=== PATIENT | male | born 1985 | race Caucasian/White ===

== ENCOUNTER 2020-11-19 15:19 | Outpatient (REF) | payer BC, SELFPAY ==
[2020-11-19 19:09] LABS: Amphetamine Screen Urine Not Detected (Not Detect); Barbiturates, Urine Not Detected (Not Detect); Benzodiazepines Screen Urine Not Detected (Not Detect); Cannabinoid Screen Urine POSITIVE (Not Detect); Cocaine Screen Urine POSITIVE (Not Detect); Fentanyl, urine Not Detected (Not Detect); Opiate Screen Urine Not Detected (Not Detect); Phencyclidine Screen Urine Not Detected (Not Detect)
== END 2020-11-19 15:20 | disposition home or self-care (01) ==
LOC: HO.MANLNP 15:19
PROVIDERS: PCP Physician Assistant; Visit Provider Physician Assistant
DX: R44.1 Visual hallucinations (principal)
CPT/HCPCS: 80307

== ENCOUNTER 2023-09-16 14:28 | Outpatient (REF) | payer SELFPAY ==
--- NOTE | ~2023-09-16 | XR_ITS ---
EXAMINATION: XR LUMBOSACRAL SPINE CLINICAL INFORMATION: Low back pain, history of injury, pain progression with legs become numb COMPARISON: None available. TECHNIQUE: Three views of the lumbosacral spine. FINDINGS: Slight leftward curvature of the lumbar spine. Facet arthritis in the lower lumbar spine. Multilevel lumbar spondylosis. Frdkwevs-af-bfdrig loss of disc space height with degenerative changes at L5-S1. XR/XR lumbar spine 2-3V IMPRESSION: Gfzruxah-sk-oxhdig degenerative disc disease at L5-S1. Electronically signed by: Tigist Laura MD 10/11/2023 01:57 PM EDT
[2023-09-16 14:58] LABS: MANUAL DIFF FLAG NO
[2023-09-16 15:44] LABS: Basophils Percent Auto 0.3 % (0-2); Eosinophils Absolute Auto 0.2 X10*3/uL (0.0-0.4); Eosinophils Percent Auto 3.3 % (0-4); Hematocrit 48.4 % (42.0-52.0); Hemoglobin 16.5 g/dl (14.0-18.0); Imm Gran Abs Auto 0.02 X10*3/uL (0.00-0.03); Imm Gran Pct Auto 0.3 % (0.0-0.4); Lymphocytes Absolute Auto 2.2 X10*3/uL (1.2-4.9); Mean Corpuscular HGB Conc 34.1 g/dl (31.0-36.0); Mean Corpuscular Hemoglobin 29.3 pg (27.0-33.0); Mean Platelet Volume 9.6 fL (9.4-12.4); Monocytes Absolute Auto 0.4 X10*3/uL (0.1-1.2); Monocytes Percent Auto 6.8 % (2-11); Neutrophils Absolute Auto 3.2 x10*3/uL (2.0-8.3); Neutrophils Percent Auto 52.3 % (45-73); Platelet Count 219 X10*3/uL (160-400); Red Blood Count 5.63 X10*6/uL (4.60-5.80); Red Cell Distribution Width 12.6 % (11.0-16.0)
[2023-09-16 15:57] LABS: Estimated Average Glucose 194 mg/dL; Hemoglobin A1c % 8.4 % (<6.0)
[2023-09-16 16:43] LABS: Alanine Aminotransferase 34 U/L (0-40); Albumin Level 4.3 g/dL (3.5-5.0); Alkaline Phosphatase 98 U/L (39-117); Anion Gap 14 (12-20); Aspartate Amino Transferase 25 U/L (5-37); Bilirubin Total 0.4 mg/dL (0.0-1.0); Blood Urea Nitrogen 13 mg/dL (9-16); Calcium 9.9 mg/dL (8.4-10.2); Carbon Dioxide 28 mmol/L (22-29); Chloride 101 mmol/L (96-108); Cholesterol 173 mg/dL (<200); Estimated Glomerular Filt Rate > 60; Glucose Random 216 mg/dL (60-115); HDL Cholesterol 55 mg/dL (>40); LDL Cholesterol Calculated 100 mg/dL (<100); Potassium 4.4 mmol/L (3.3-5.1); Sodium 139 mmol/L (135-145); Total Protein 7.3 g/dL (6.5-8.0); Triglycerides 93 mg/dL (<150)
== END 2023-09-16 14:29 | disposition home or self-care (01) ==
LOC: HO.LAB 14:28
PROVIDERS: PCP Physician Assistant; Visit Provider Physician Assistant
DX: M51.17 Intervertebral disc disorders with radiculopathy, lumbosacral region (principal); E11.9 Type 2 diabetes mellitus without complications
CPT/HCPCS: 36415; 72100; 80053; 80061; 83036; 85025

== ENCOUNTER 2024-04-13 10:54 | Outpatient (REF) | payer BC, SELFPAY ==
[2024-04-13 11:27] LABS: MANUAL DIFF FLAG NO
[2024-04-13 11:55] LABS: Basophils Percent Auto 0.5 % (0-2); Eosinophils Absolute Auto 0.1 X10*3/uL (0.0-0.4); Eosinophils Percent Auto 1.9 % (0-4); Hematocrit 48.2 % (42.0-52.0); Imm Gran Abs Auto 0.02 X10*3/uL (0.00-0.03); Imm Gran Pct Auto 0.3 % (0.0-0.4); Lymphocytes Absolute Auto 1.8 X10*3/uL (1.2-4.9); Lymphocytes Percent Auto 28.9 % (20-40); Mean Corpuscular HGB Conc 35.3 g/dl (31.0-36.0); Mean Corpuscular Hemoglobin 28.9 pg (27.0-33.0); Mean Corpuscular Volume 81.8 fL (80.0-98.0); Mean Platelet Volume 9.3 fL (9.4-12.4); Monocytes Absolute Auto 0.5 X10*3/uL (0.1-1.2); Monocytes Percent Auto 7.7 % (2-11); Neutrophils Absolute Auto 3.8 x10*3/uL (2.0-8.3); Neutrophils Percent Auto 60.7 % (45-73); Platelet Count 259 X10*3/uL (160-400); Red Blood Count 5.89 X10*6/uL (4.60-5.80); Red Cell Distribution Width 12.1 % (11.0-16.0); White Blood Count 6.3 X10*3/uL (4.8-10.8)
[2024-04-13 12:11] LABS: Estimated Average Glucose 278 mg/dL; Hemoglobin A1C 423.4082 umol/L; Hemoglobin A1c % 11.3 % (<6.0); Total Hemoglobin (HGBA1C) 4252.9367 umol/L
--- OUTSIDE RECORDS SUMMARY | 2024-04-13 12:35 | XMS_ITS | Encounter Summary ---
Author Organization [facility] Address [address] [place] [id number] Phone Care Team Providers Care Head Neck Surgeon Name Role Phone Kalpesh Hector Primary Care Provider [phone] Encounter Details Date Type Department Care Team (Late st Contact Info) Description 09/30/2016 Conversion Encounter [facility] [address] [place] [address] Social History Tobacco Use Types Packs/Day Years Used Date Smoking Tobacco: Never Assessed Sex and Gender Information Value Date Recorded Sex Assigned at Not on file Legal Sex Male 4:20 PM EDT Gender Identity Not on file Sexual Orientation Not on file documented as of this encounter Plan of Treatment Not on file documented as of this encounter Visit Diagnoses Not on filedocumented in this encounter Care Teams Head Neck Surgeon Relationship Specialty Start Date End Date Kalpesh Hector [address] [place] [address] PCP - General 09/24/16 documented as of this encounter
--- OUTSIDE RECORDS SUMMARY | 2024-04-13 12:35 | XMS_ITS | Clinical Summary ---
Author Organization [facility] Address [address] [place] [address] Phone Care Team Providers Care Die Sinker Apprentice Name Role Phone Krunal Kalpesh Efrain Primary Care Provider [phone] Immunizations Immunization Administration Dates Next Due DTP 10/14/1996, 1,08/20/1985,06/07,03/20/1985 Hep B, ped/adol 02/18/2000,03/21/1998,10/04/1997 Hib (HbOC) 12/14/1997 IPV 07/14/1990, 7,08/20/1985,06/07 MMR 06/14/1996,09/27/1986 Meningococcal Conj (Menactra) MCV4P 06/22/2005 Td (adult) (MBL), 2 Lf tetan us toxoid, PF, adsorbed 06/22/2005,02/22/2002,06/14/1996 Social History Tobacco Use Types Packs/Day Years Used Date Smoking Tobacco: Never Assessed Sex and Gender Information Value Date Recorded Sex Assigned at Not on file Legal Sex Male 4:20 PM EDT Gender Identity Not on file Sexual Orientation Not on file Plan of Treatment Health Maintenance Due Date Last Done Comments Varicella Vaccines (1 of 2 - 13+ 2-dose series) 1997 DTaP,Tdap,and Td Vaccines (8 - Tdap) 06/23/2015 06/22/2005, 02/22/2002, 10/14/1996, Additional history exists Influenza Vaccines (#1) 2023 COVID-19 Vaccine ( - season) 2023 IPV Vaccines Completed 07/14/1990, 09/14, 08/20/1985, Additional history exists MMR Vaccines Completed 06/14/1996, 09/27/1986 HIB Vaccines Aged Out 12/14/1997 No longer eligi ble based on patient's age to complete this topic Hepatitis B Vaccines Completed 02/18/2000, 03/21/1998, 10/04/1997 Meningococcal Vaccine Aged Out 06/22/2005 No rodriguez derek eligible based on patient's age to complete this topic HPV Vaccines Aged Out No longer eligi ble based on patient's age to complete this topic Hepatitis A Vaccines Aged Out No long er eligible based on patient's age to complete this topic Men B Vaccine Aged Out No longer elig ible based on patient's age to complete this topic Pneumococcal Vaccine Aged Out No long er eligible based on patient's age to complete this topic Care Teams Die Sinker Apprentice Relationship Specialty Start Date End Date Kalpesh Hector [address] [place] [id number] PCP - General 09/24/16
--- OUTSIDE RECORDS SUMMARY | 2024-04-13 12:35 | XMS_ITS | Data Portability ---
Author Organization [facility] Service Address [address] [place] [address] Assessment Encounter Date Assessment Date Assessment LastModified by Organization Details LastModified Time 02/27/2020 02/27/2020 16649 MDM MODERATE MUST MEET 2 OUT OF 3 ELEMENTS: PROBLEMS, DATA OR RISK ELEMENT 1: PROBLEMS ADDRESSED 1 OR MORE CHRONIC ILLNESS WITH EXACERBATION OR OR OR 1 ACUTE ILLNESS W/SYMPTOMS OR ELEMENT 2: DATA MUST MEET 1 OF 3 CATEGORIES CATEGORY 1: REVIEW OF PRIOR EXTERNAL NOTES, REVIEW OF RESULTS, ORDERING OF EACH TEST, ASSESSMENT REQUIRING INDEPENDENT HISTORIAN OR CATEGORY 2: OR CATEGORY 3: ELEMENT 3: RISK RISK OF COMPLICATIONS AND/OR MORBIDITY OR MORTALITY OF PATIENT MANAGEMENT if patient does not get diabetes under control risk include neuropathy, diabetic retinopathy, NC, stroke, etc. PROVIDER MUST THOROUGHLY DOCUMENT EACH ELEMENT THAT IS COVERED [email or web address] Not available 02/27/2020 14:59:13 09/16/2023 09/16/2023 Patient agreed and verbally consents to this audio and video Telehealth appt via a secure platform [email or web address] Not available 09/16/2023 12:04:50 Plan of Treatment Reminders Order Date Submit Date Provider Last Modified By Organization Details Last Modified Time Details Appointments FOLLOW UP 15 2024 03:30P M LAMAR ROBERTSON Not available Not available Not available Lab CMP, serum or plasma 2023 024 [facility], [address] [place] [address], [place], [address], 09/19/2023 11:35:00 lipid panel, serum 2023 024 [facility], [address] [place] [address], [address], 09/19/2023 11:35:00 hemoglobi n A1c, QN, blood 2023 024 [facility], [address] [place] [address], [address], 09/16/2023 12:11:02 CBC w/ auto diff 2023 024 [facility], [address] [place] [address], [address], 09/16/2023 12:11:02 lipid panel, serum 2023 025 [facility], [address] [place] [address], [address], 09/19/2023 11:35:00 CMP, serum or plasma 2023 024 [facility], [address] [place] [address], [address], 09/19/2023 11:35:00 CMP, serum or plasma 2022 023 [facility], [address] [place] [address], [address], 12/27/2022 11:57:58 hemoglobi n A1c, QN, blood 2022 023 [facility], [address] [place] [address], [address], 12/27/2022 11:57:58 lipid panel, serum 2021 022 [facility], [place], [address], 08/25/2021 16:50:30 CMP, serum or plasma 2021 022 [facility], [place], [address], 08/25/2021 16:50:30 HbA1c (hemoglob in A1c), blood 2021 [facility], [place], [address], 08/25/2021 16:50:30 vitamin D, 25-hydrox y, total, serum 2021 [facility], [place], [address], 08/25/2021 16:55:20 vitamin B12 + folate, serum or blood 2021 [facility], [place], [address], 08/25/2021 16:55:19 testoster one, free + total, serum 2021 [facility], [place], [address], 08/25/2021 16:55:19 TSH + free T4, serum 2021 [facility], [place], [address], 08/25/2021 16:55:20 vitamin D, 25-hydrox y, total, serum 2021 [facility], [address] [place] [address], [place], [address], 08/25/2021 17:00:47 drug screen, urine 2020 [facility], [address] [place] [address], [place], [address], 11/20/2020 12:50:00 CMP, serum or plasma 2020 RE[facility] Not available 12/02/2020 15:34:48 CBC w/ auto diff 2020 021 [email or web address] Not available 11/19/2020 15:05:34 hemoglobi n A1c, QN, blood 2020 021 [email or web address] Not available 11/19/2020 15:05:34 Referral dermatolo gist referral 2021 022 indu [facility], [address], [place], [address], 09/22/2021 08:29:24 sleep medicine referral 2021 022 [email or web address] 10 [facility], [address] [place] [address], [address], 08/28/2021 08:28:12 sleep medicine referral 2020 021 [facility], [address] [place] [address], [address], 12/19/2020 11:05:02 Procedures None recorded. Surgeries None recorded. Imaging XR, lumbosacr al spine, 2 or 3 view 2023 024 [email or web address] [facility], [address] [place], [address], 09/19/2023 11:15:38 XR, hand, 3 or more view 2021 [email or web address] [place] [address] [facility], [address], [place], [address], 09/08/2021 08:38:10 XR, ribs, unilatera l, w/ PA chest 2020 021 [facility], [address], [address], 11/26/2020 08:25:03 XR, knee, 3 view 2020 021 [facility], [address] [place], [address], 11/21/2020 09:54:32 XR, chest, 2 view 2020 021 cathleen [facility], [address] [place], [address], 12/03/2020 08:12:51 Medication Orders tramadol 50 mg tablet 2023 024 [facility], [address], [id number], 09/16/2023 12:01:11 prednison e 10 mg tablet 2023 024 YOUNG HARRIS [facility], [address], [id number], 09/16/2023 12:01:08 Jardiance 25 mg tablet 2022 023 [facility], [address] [place], [address], 12/27/2022 12:17:40 dextroamp hetamine- amphetami ne 10 mg tablet 2022 023 [facility], [address] [place], [address], 02/11/2023 15:10:35 metformin ER 500 mg tablet,ex tended release 24 hr 2021 022 [facility], [address] [place], [address], 12/27/2022 11:47:44 metformin ER 500 mg 24 hr tablet,ex tended release (gastric retention ) 2020 021 [facility] #2025, [address] [place], [address], 08/25/2021 16:31:32 FreeStyle Lite Strips 2020 021 [facility]acy #2025, [address] [place], [address], 02/27/2020 14:52:40 Patient TargetsNo targets recorded. Patient InstructionsNo instructions recorded. Reason for Referral Sleep Medicine Referral for Sleep walking disorder one episode of violent sleep walking Referring Physician: Annette Nguyen, Internal Medicine, Encounter Date: 11/19/2020 Sleep Medicine Referral for Fatigue excessive daytime sleepiness Referring Physician: Annette Nguyen, Internal Medicine, Encounter Date: 08/25/2021 Certified Midwife Referral for M ultiple benign melanocytic nevi the patient had several moles he has concerns about, needs skin check Referring Physician: Annette Nguyen, Internal Medicine, Encounter Date: 08/25/2021 Results Created Date Observation Date Name Description Value Unit Range Abnormal Flag Note LastModifiedBy Organization Detail LastModifiedTime 11/20/19 21 11/19/2020 XR, knee, 3 view No observ ation record ed. [facility] [address] [place], [address], 11/21/2020 09:54:32 11/20/19 21 11/19/2020 XR, chest , 2 view No observ ation record ed. [facility] [address] [place], [address], 11/21/2020 09:57:02 02/02/20 22 01/27/2022 sleep study , diagn ostic (PROC ) No observ ation record ed. [facility] [address] [place], [address], 02/01/2022 14:10:30 10/11/19 24 09/16/2023 XR, lumbo sacra l spine , 2 or 3 view No observ ation record ed. [facility] (Medical Records) [address] [place], [address], 10/11/2023 15:46:35 Result Notes None recorded. Problems Name Problem SNOMED Code Status Onset Date Resolution Date Notes Provider Name and Address Organization Details Recorded Time Gastroeso phageal reflux disease 481642779 Active 2017 Dianelys preston [facility] 8 08:14:26 Type 2 diabetes mellitus 17294442 Active 2017 Dianelys preston [facility] 8 08:14:43 Primary hyperchol esterolem ia 851232158 Active 2017 Jacque Pretty NP, S [address] [place] [address], [address], [facility] 8 16:38:47 Pain of left hand 775202474585 103 Active 2021 LAMAR ROBERTSON [address] [place] [address], [address], [facility] 2 16:41:26 Fatigue 66900241 Active 2021 LAMAR ROBERTSON [address] [place] [address], [address], [facility] 2 16:49:17 Multiple benign melanocyt ic nevi 733945147 Active 2021 LAMAR ROBERTSON [address] [place] [address], [address], [facility] 2 17:07:56 COVID-19 399245366 Active 2021 LAMAR ROBERTSON [address] [place] [address], [address], [facility] 2 16:23:41 Adult attention deficit hyperacti vity disorder 600309961 Active 2022 LAMAR ROBERTSON [address] [place] [address], [address], [facility] 3 11:54:41 Low back pain 508060624 Active 2023 LAMAR ROBERTSON [address] [place] [address], [address], [facility] 4 14:41:19 Pain in lumbar spine 784860365 Active 2023 LAMAR ROBERTSON [address] [place], [address], [facility] 4 11:55:14 Lumbago with sciatica 143490712 Active 2023 LAMAR ROBERTSON [address] [place], [address], [facility] 4 11:56:53 Lumbago with sciatica 303164639 Active 2023 LAMAR ROBERTSON [address] [place] [address], [address], [facility] 4 15:47:18 Problem Notes None recorded. Procedures Surgical History Date Name Laterality Status Provider Name and Address Organization Details Recorded Time Eye Surgery completed Jacque Carl i, SCIENTIFIC LINGUIST, S [address] [place] [address], [phone], [facility] 12/19/2017 15:45:51 Imaging Results Imaging Date Name Status LastModified by Benjamin sexton Details LastModified Time 11/19/2020 XR, knee, 3 view completed [facility] [address] [place], [address], 11/21/2020 09:54:32 11/19/2020 XR, chest, 2 view completed [facility] [address] [place], [address], 11/21/2020 09:57:02 01/27/2022 sleep study, diagnostic (PROC) completed [facility] [address] [place], [address], 02/01/2022 14:10:30 09/16/2023 XR, lumbosacral spine, 2 or 3 view completed [facility] (Medical Records) [address] [place], [address], 10/11/2023 15:46:35 Procedure Notes None recorded. Medical Equipment None Reported. Allergies No known drug allergies Medications Name Sig Start Date Stop Date Status Note LastModified by Organization Details LastModified Time cyclobenzap rine 10 mg tablet TAKE ONE TABLET BY MOUTH THREE TIMES A DAY NEEDED FOR 14 DAYS active Not Available Not Available No t Available prednisone 10 mg tablet TAKE 6 TABLETS BY MOUTH DAILY FOR 2 DAYS, THEN 5 TABLETS FOR 2 DAYS,THEN 4 TABLETS FOR 2 DAYS,THEN 3 TABLETS FOR 2 DAYS,THEN 2 TABLETS FOR 2 active Not Available Not Available No t Available doxycycline hyclate 100 mg capsule Take 1 capsule twice a day by oral route. 09/08 completed Not Available Not Available Not Available azithromyci n 250 mg tablet TAKE 2 TABLETS BY MOUTH TODAY, THEN TAKE 1 TABLET DAILY FOR 4 DAYS 12/27 completed Not Available Not Available Not Available benzonatate 200 mg capsule 12/19 completed Not Available Not Available Not Available FreeStyle Lancets 28 gauge USE DIRECTED TO TEST SUGAR TWICE DAILY active Not Available Not Available No t Available dextroamphe tamine-amph etamine 10 mg tablet TAKE ONE TABLET BY MOUTH EVERY DAY 02/11 completed Not Available Not Available Not Available clindamycin 1 %-benzoyl peroxide 5 % topical gel 12/19 completed Not Available Not Available Not Available sulfamethox azole 800 mg-trimetho prim 160 mg tablet 12/19 completed Not Available Not Available Not Available tramadol 50 mg tablet TAKE ONE TABLET BY MOUTH EVERY 6 HOURS NEEDED FOR 7 DAYS active Not Available Not Available No t Available amoxicillin 875 mg tablet TAKE 1 TABLET BY MOUTH EVERY 12 HOURS FOR 10 DAYS 12/27 completed Not Available Not Available Not Available famotidine 20 mg tablet TAKE 1 TABLET BY MOUTH TWICE A DAY NEEDED active Not Available Not Available No t Available clindamycin 1 % topical gel 06/09 completed Not Available Not Available Not Available dextroamphe tamine-amph etamine ER 20 mg 24hr capsule,ext end release Take 1 capsule every day by oral route for 30 days. 2023 active Not Available Not Available Not Avai lable dextroamphe tamine-amph etamine 20 mg tablet Take 1 tablet every day by oral route for 30 days. 11/24 completed Not Available Not Available Not Available omeprazole 20 mg capsule,del ayed release TAKE 1 CAPSULE BY MOUTH EVERY DAY 30 MINUTES BEFORE MORNING MEAL FOR 30 DAYS 2021 active Not Available Not Available Not Avai lable ibuprofen 600 mg tablet active Not Available Not Available Not Available methylpredn isolone 4 mg tablets in a dose pack TAKE 6 TABLETS ON DAY 1 DIRECTED ON PACKAGE AND DECREASE BY 1 TAB EACH DAY FOR A TOTAL OF 6 DAYS 12/27 completed Not Available Not Available Not Available albuterol sulfate HFA 90 mcg/actuati on aerosol inhaler Inhale 2 puffs every 4 hours by inhalatio n route for 30 days. active Not Available Not Available No t Available metformin ER 500 mg tablet,exte nded release 24 hr TAKE 1 TABLET BY MOUTH THREE TIMES A DAY 12/27 completed Not Available Not Available Not Available naproxen 500 mg tablet TAKE ONE TABLET BY MOUTH TWICE A DAY WITH MEALS 09/15 completed Not Available Not Available Not Available Denta 5000 Plus 1.1 % cream PLEASE SEE ATTACHED FOR DETAILED DIRECTION S active Not Available Not Available No t Available Alcohol Prep Pads Cleanse the skin by using 1 pad on the affected area directly before applying any topical Cream / Gel / Solution 12/27 completed Not Available Not Available Not Available Boostrix Tdap 2.5 Lf unit-8 mcg-5 Lf/0.5 mL intramuscul ar syringe TO BE ADMINISTE RED BY PHARMACIS T FOR IMMUNIZAT ION 08/25 completed Not Available Not Available Not Available metformin ER 500 mg 24 hr tablet,exte nded release (gastric retention) TAKE 1 TABLET BY MOUTH TID A DAY 08/25 completed Not Available Not Available Not Available FreeStyle Lite Meter kit USE DIRECTED TO TEST BLOOD SUGAR TWICE PER DAY active Not Available Not Available No t Available FreeStyle Lite Strips USE 1 STRIP DIRECTED TWICE DAILY TO CHECK SUGAR active Not Available Not Available No t Available lidocaine 5 % topical ointment Apply 1-2 grams to the affected area 2-4 times a day (apply only to a single body part per applicati on ie feet / hands ) - 90 day supply 12/19 completed Not Available Not Available Not Available Jardiance 25 mg tablet Take 1 tablet every day by oral route for 90 days. 2023 active Not Available Not Available Not Avai lable Rybelsus 7 mg tablet TAKE ONE TABLET BY MOUTH EVERY DAY DIRECTED active Not Available Not Available No t Available Vitals Date Recorded Body height Body mass index (BMI) Body weight Oxygen saturation Oxygen saturation in Arterial blood by Pulse oximetry Heart rate Systolic blood pressure Diastolic blood pressure Provider Name and Address Organization Details Last Updated DateTime 1 182.25 cm 30.5 kg/m2 060826. 82 g 97 % 97 % 82 /min 130 mm[Hg] 100 mm[Hg] Cathryn Maritn [facility] 1 14:43:20 Date Recorded Body height Body mass index (BMI) Body weight Oxygen saturation Oxygen saturation in Arterial blood by Pulse oximetry Heart rate Systolic blood pressure Diastolic blood pressure Provider Name and Address Organization Details Last Updated DateTime 2 182.25 cm 32 kg/m2 445511. 69 g 97 % 97 % 94 /min 122 mm[Hg] 78 mm[Hg] Cathryn [place] [facility] 2 16:32:33 Date Recorded Body height Body mass index (BMI) Body weight Heart rate Oxygen saturation Oxygen saturation in Arterial blood by Pulse oximetry Systolic blood pressure Diastolic blood pressure Provider Name and Address Organization Details Last Updated DateTime 3 180.34 cm 33.9 kg/m2 768856. 95 g 67 /min 96 % 96 % 122 mm[Hg] 80 mm[Hg] Rochelle Hinds [facility] 3 11:28:10 Social History Question Answer Notes LastModified by Organizat ion Details LastModified Time Tobacco Smoking Status Former Smoker 20 years Not Available [facility] 12/18/2019 03:36:24 What Was The Date Of Your Most Recent Tobacco Screening? 12/27/2022 Information not available 12/27/2022 Do You Or Have You Ever Used Any Other Forms Of Tobacco Or Nicotine? No [email or web address] Information not available 12/27/2022 Sex: Unknown Functional Status None recorded. Mental Status None recorded. Family History Relationship Description Onset Age of this Age Resolved Age Notes LastModified by Organization Details LastModified Time Father Diabetes mellitus sue Not available 2017 15:45:22 Mother Diabetes mellitus sue Not available 2017 15:45:22 Medical History No medical history recorded. Past Encounters Encounter ID Performer Location Encounter Start Date Encounter Closed Date Diagnosis/Indication Diagnosis SNOMED-CT Code Diagnosis ICD10 Code Diagnosis Note [id number] Jacque Pretty NP, [facility] [address] [facility],[place] [address] 12/19/2017 15:31:59 12/20/2017 08:20:28 Adult health examination 083192048 Z00.01 Foot pain 15912202 M79.6 71 Type 2 rajesh betes mellitus 48706309 E11.9 Gastroesop hageal reflux disease 556962217 K21.9 follow Primary hypercholesterolemia 371477451 E78.00 will recheck Feb- see if dietary/ex ercise patterns improve profile [id number] Jacque Pretty NP, [facility] [address] [facility],[place] [address] 03/10/2018 15:51:02 03/10/2018 16:45:42 Primary hypercholesterolemia 373448666 E78.00 will recheck May- Type 2 rajesh betes mellitus 50756714 E11.9 [id number] Jacque Pretty NP, [facility] [address] [facility],[place] [address] 06/09/2018 16:02:24 06/12/2018 08:18:02 Fatigue 27585454 R53.83 Primary hypercholesterolemia 211195002 E78.00 follow Type 2 rajesh betes mellitus 43047515 E11.9 improving A1C Screening procedure 2012 5006 Z13.9 Gastroesop hageal reflux disease 046255704 K21.9 follow [id number] Martínez Menon DO [facility] [address] [facility],[place] [address] 09/08/2018 15:41:02 09/08/2018 16:35:53 Type 2 diabetes mellitus 35015947 E11.9 a1c is no w down to 8 from a high of 10.5 rechk in 3 months [id number] LAMAR ROBERTSON [facility] [address] [facility] [address],[place] [address] 02/27/2020 09:19:58 02/27/2020 15:06:22 Type 2 diabetes mellitus 95173039 E11.9 A1c is 9.4% patient will start taking metformin 500 mg TID PRESCRIBED as patient was forgetting to take his medication due to move and eating poorly due to move patient will have A1c rechecked in 3 months and will assess if next steps are needed at this time Gastroesop hageal reflux disease 602483282 K21.9 diet controlled per patient avoiding the foods that trigger him no interventi on needed at this time Paresthesi a of upper limb 22077808 R20.2 bilateral arms, 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 noticed at night in bed he would wake up with sondra numbness from his arms into his hands no neuro deficits, no chest pain discussed with patient could be his nerve are inflamed do to the use of the vibrating power tools has not worsened and is getting better on its own also could be neuropathy due to poor diabetic control will fu if it worsens [id number] LAMAR ROBERTSON [facility] [address] [facility],[place] [address] 11/19/2020 14:36:14 11/19/2020 15:14:41 Hallucinations 0306574 R44.1 will fu with testingmos t likely related to poor oxygen and sleep deprivatio n Sleep deprivation 571229 002 Z72.820 hallucinat ions and sleeping walking after COVID and lack of sleep Impaired f asting glycemia 996963551 R73.01 will recheck A1c Dyspnea 046162623 R06.02 fu with XRis de-sating in the office from 98% to 93% on RA with walking in the hallway Sleep walk ing disorder 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 F51.3 will fu with sleep medicine Rib pain 059085829 R07.8 1 will fu r/o rib fx Anterior knee pain 45782 3006 M25.562 will fu with XR knee [id number] LAMAR ROBERTSON [facility] [address] [facility],[place] [address] 08/25/2021 16:18:22 08/26/2021 13:42:39 Type 2 diabetes mellitus 44615775 E11.9 will fu with recheck Primary hypercholesterolemia 190970168 E78.01 will recheck his labs Gastroesop hageal reflux disease 730007902 K21.9 diet controlled per patient avoiding the foods that trigger him no interventi on needed at this time Pain of left hand 383407 1600 13567 M79.642 will fu with XR hand Fatigue 98061017 R53.83 will fu with blood work Multiple b enign melanocytic nevi 421390572 D22.5 will fu with dermatolog y [id number] LAMAR ROBERTSON [facility] [address] [facility] [address],[place] [address] 12/27/2022 11:21:46 12/27/2022 13:37:56 Type 2 diabetes mellitus 38994208 E11.9 will f/u with recheck in 3 mosstop metformin, makes him to illalso clearly ineffectiv e Adult atte ntion deficit hyperactivity disorder 804493500 F90.0 will start on adderral for better focus [id number] LAMAR ROBERTSON [facility] [address] [facility] [address],[place] [address] 09/16/2023 10:01:59 09/19/2023 11:15:38 Type 2 diabetes mellitus 36371808 E11.9 will set up with [facility] Pain in lumbar spine 267 693119 M54.51 needs XR, then [facility] Lumbago with sciatica 20 4606679 M54.42 will start on prednisone Health Concerns Section Related Observation LastModified by Organization Detai ls LastModified Time None Recorded Concern Status LastModified by Organization Details LastModified Time None Recorded Advance Directives Directive None Recorded Payers Encounter Date Sequence Insurance Name Policy Number Policy Juarez Covered Member ID Juarez Member ID Guarantor Name 02/27/2020 1 [place] [id number] Martínez Werner [id number] Martínez Werner 11/19/2020 1 [place] [id number] Martínez Werner [id number] Martínez Werner 08/25/2021 1 [place] [id number] Martínez Werner [id number] Martínez Werner 12/27/2022 1 [facility] [id number] Martínez Werner [id number] Martínez Werner 09/16/2023 1 [facility] [id number] Martínez Werner [id number] Martínez Werner Notes Date Note Type Note Provider Name and Address Organization Details Recorded Time 1 text/html DM fu DM: the patient reports that the he just moved into new house that needed a lot of work 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 would often forget to take his medications appropriately reports he was also eating a lot of junk and prepared meals which also contributed to his elevated numbers discussed with patient about appropriate diet control and taking his medications can also set alarms on his phone to remind him patient will also try to more regularly check his sugar patient agrees GERD: has settled down since he started to eat better the patient has lost 40 pounds related to eat better which should also impact his sugar will continue on appropriate diet paresthesia: after use of power tools and construction patient developed paresthesia of the bilateral upper arms, only at night lingering into the morning has improved since he finished construction but did discuss possibility it could be neuropathy related to his high sugar levels and A1c if this continues to be an issue or to worsen patient was told to inform us for the appropriate work up the patient denies neuro deficits or chest pain at this time no fever, no chills no sob, no cough, no abd pain, no chest pain, no n/v/d, no sore throat, no fatigue, no congestion LAMAR ROBERTSON [address] [place] [address], [place], [id number], [facility] 02/27/2020 16:38:45 1 text/html c/o post-COVID 19 the patient reports that he was working at [employer] for a [employer] patient reports that he only had about ten hours of sleep in the total weekwhen he finished the job he went to sleep, states that he was hallucinating and has was really tiredstates during the night his GF witnessed him and video recorded himvideo shows sleep walking, violent, unaware of what was going onconcerned he was drugged [facility] fu with tox screen and other labs will also fu with full eval with sleep medicine, XRs and the like for injury sustained during this time the patient o2 is dropping from 98% to 93% with HR increasing to 82 bpm to 97 bpm LAMAR ROBERTSON [address] [place], [phone], 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 08/25/2021 17:17:17 3 text/html f/u blood work Type 2 Diabetes: the patient's A1c is up to 12%patient does endorse his is feeling poorly, fatiguedagreed to switch out from metformin to jardiance the patient broke his Left arm about 6 weeks agohealed up well, no complications, was in a last for 4 weeks ADHD: patient meets criteria for inattentive type predominantlyfeels pressured to talkbounces back from one topic to the nexttends to interrupt people to finish their sentencestrouble staying on tasktrouble staying organizedloses things easilydifficulty paying attentiontypically has hyper-fixations on specific things gets anxious when he has trouble completing taskshas trouble completing tasks on hand LAMAR ROBERTSON [address] [place], [phone], [facility] 12/27/2022 12:19:17 4 text/html c/o lumbar spine pain The patient is participating in this appointment via telemedicine communication with a phone call/video calling service (Doxy)The patient consents to use of these platforms in place of an in-person appointment due to either sick symptoms the patient is presenting with or current office closure due to COVID exposure in order to keep our office staff and patients safe the patient reports is getting pain in his lumbar spine radiating down his left legthe patient reports that he was helping a friend move, was lifting heavy objects ie TV, couch, bed, etcnoticed immediately after worsening back painusually clears with MSK relaxer and anti-inflammatories but has not improvedstarted getting the numbness down his left leg, worse with walking up stairs or bending over suggested alt treatment plan and an XR, will need MRIoverdue for lab work, patient aware LAMAR ROBERTSON [address] [place] [address], [place], [phone], [facility] 09/16/2023 12:17:14
[2024-04-13 12:55] LABS: Alanine Aminotransferase 40 U/L (0-40); Albumin Level 4.5 g/dL (3.5-5.0); Alkaline Phosphatase 122 U/L (39-117); Anion Gap 14 (12-20); Aspartate Amino Transferase 21 U/L (5-37); Bilirubin Total 0.3 mg/dL (0.0-1.0); Blood Urea Nitrogen 13 mg/dL (9-16); Calcium 9.9 mg/dL (8.4-10.2); Carbon Dioxide 26 mmol/L (22-29); Chloride 100 mmol/L (96-108); Cholesterol 172 mg/dL (<200); Estimated Glomerular Filt Rate > 60; HDL Cholesterol 49 mg/dL (>40); LDL Cholesterol Calculated 112 mg/dL (<100); Potassium 4.9 mmol/L (3.3-5.1); Sodium 135 mmol/L (135-145); Total Protein 8.3 g/dL (6.5-8.0); Triglycerides 59 mg/dL (<150)
[2024-04-13 12:56] LABS: Vitamin D 25-OH Total 28.6 ng/mL (>30)
[2024-04-13 13:38] LABS: Glucose Random 371 mg/dL (60-115)
== END 2024-04-13 10:55 | disposition home or self-care (01) ==
LOC: HO.LAB 10:54
PROVIDERS: PCP Physician Assistant; Visit Provider Physician Assistant
DX: Z00.00 Encounter for general adult medical examination without abnormal findings (principal); E11.9 Type 2 diabetes mellitus without complications; Z13.228 Encounter for screening for other metabolic disorders
CPT/HCPCS: 36415; 80053; 80061; 82306; 83036; 85025

== ENCOUNTER 2024-05-10 12:42 | Outpatient (REF) | payer BC, SELFPAY ==
[2024-05-10 13:00] LABS: MANUAL DIFF FLAG NO
[2024-05-10 14:18] LABS: Basophils Percent Auto 0.5 % (0-2); Eosinophils Absolute Auto 0.1 X10*3/uL (0.0-0.4); Eosinophils Percent Auto 1.8 % (0-4); Hematocrit 45.7 % (42.0-52.0); Hemoglobin 16.1 g/dl (14.0-18.0); Imm Gran Abs Auto 0.02 X10*3/uL (0.00-0.03); Imm Gran Pct Auto 0.3 % (0.0-0.4); Lymphocytes Absolute Auto 2.5 X10*3/uL (1.2-4.9); Lymphocytes Percent Auto 34.1 % (20-40); Mean Corpuscular HGB Conc 35.2 g/dl (31.0-36.0); Mean Corpuscular Hemoglobin 28.4 pg (27.0-33.0); Mean Corpuscular Volume 80.6 fL (80.0-98.0); Mean Platelet Volume 9.4 fL (9.4-12.4); Monocytes Absolute Auto 0.4 X10*3/uL (0.1-1.2); Monocytes Percent Auto 5.6 % (2-11); Neutrophils Absolute Auto 4.2 x10*3/uL (2.0-8.3); Neutrophils Percent Auto 57.7 % (45-73); Platelet Count 262 X10*3/uL (160-400); Red Blood Count 5.67 X10*6/uL (4.60-5.80); Red Cell Distribution Width 12.1 % (11.0-16.0); White Blood Count 7.3 X10*3/uL (4.8-10.8)
[2024-05-10 14:22] LABS: Estimated Average Glucose 292 mg/dL; Hemoglobin A1c % 11.8 % (<6.0)
[2024-05-10 14:46] LABS: Alanine Aminotransferase 41 U/L (0-40); Albumin Level 4.4 g/dL (3.5-5.0); Alkaline Phosphatase 120 U/L (39-117); Anion Gap 14 (12-20); Aspartate Amino Transferase 26 U/L (5-37); Bilirubin Total 0.6 mg/dL (0.0-1.0); Blood Urea Nitrogen 10 mg/dL (9-16); Calcium 9.6 mg/dL (8.4-10.2); Carbon Dioxide 28 mmol/L (22-29); Chloride 99 mmol/L (96-108); Estimated Glomerular Filt Rate > 60; Glucose Random 257 mg/dL (60-115); Potassium 3.8 mmol/L (3.3-5.1); Sodium 137 mmol/L (135-145); Total Protein 7.6 g/dL (6.5-8.0)
== END 2024-05-10 12:43 | disposition home or self-care (01) ==
LOC: HO.LAB 12:42
PROVIDERS: PCP Physician Assistant; Visit Provider Physician Assistant
DX: E11.9 Type 2 diabetes mellitus without complications (principal)
CPT/HCPCS: 36415; 80053; 83036; 85025

== ENCOUNTER 2024-06-14 14:53 | Outpatient (REF) | payer BC, SELFPAY ==
--- OUTSIDE RECORDS SUMMARY | 2024-06-14 16:53 | XMS_ITS | Data Portability ---
Author Organization [facility] Address [address] [place] [address] Assessment Encounter Date Assessment Date Assessment LastModified by Organization Details LastModified Time 09/16/2023 09/16/2023 Patient agreed and verbally consents to this audio and video Telehealth appt via a secure platform [email or web address] Not available 09/16/2023 12:04:50 04/13/2024 04/13/2024 Patient presented for medication refill. Patient tolerating medication well at current dose without adverse effects. Refilled as below. Discussed plan with patient, who expressed understanding . Follow up as noted below. [email or web address] Not available 04/13/2024 15:51:52 Plan of Treatment Reminders Order Date Submit Date Provider Last Modified By Organization Details Last Modified Time Details Appointments FOLLOW UP 15 2024 04:15P LAMAR IBARRA Not available Not available Not available Lab hemoglobi n A1c, QN, blood 2024 025 [facility], [address] [place] [address], [address], 05/11/2024 16:44:59 CMP, serum or plasma 2024 025 [facility], [address] [place] [address], [address], 05/11/2024 16:44:59 CMP, serum or plasma 2024 025 [facility], [address] [place] [address], [address], 05/11/2024 12:49:08 hemoglobi n A1c, QN, blood 2024 025 [facility], [address] [place] [address], [address], 05/11/2024 12:49:08 CBC w/ auto diff 2024 025 [facility], [address] [place] [address], [address], 04/13/2024 16:04:57 CMP, serum or plasma 2023 024 [facility], [address] [place] [address], [address], 09/19/2023 11:35:00 lipid panel, serum 2023 024 [facility], [address] [place] [address], [address], 09/19/2023 11:35:00 hemoglobi n A1c, QN, blood 2023 024 [facility], [address] [place] [address], [address], 09/16/2023 12:11:02 CBC w/ auto diff 2023 024 [facility], [address] [place] [address], [address], 09/16/2023 12:11:02 lipid panel, serum 2023 025 [facility], [address] [place] [address], [address], 09/19/2023 11:35:00 CMP, serum or plasma 2023 024 [facility], [address] [place] [address], [address], 09/19/2023 11:35:00 CMP, serum or plasma 2022 023 [facility], [address] [place] [address], [address], 12/27/2022 11:57:58 hemoglobi n A1c, QN, blood 2022 023 [facility], [address] [place] [address], [address], 12/27/2022 11:57:58 lipid panel, serum 2021 022 [facility] [employer] [facility], [place], [address], 08/25/2021 16:50:30 CMP, serum or plasma 2021 022 [facility] [employer] [facility], [place], [address], 08/25/2021 16:50:30 HbA1c (hemoglob in A1c), blood 2021 022 [facility] [employer] [facility], [place], [address], 08/25/2021 16:50:30 vitamin D, 25-hydrox y, total, serum 2021 022 [facility] [employer] [facility], [place], [address], 08/25/2021 16:55:20 vitamin B12 + folate, serum or blood 2021 022 [facility] [employer] [facility], [place], [address], 08/25/2021 16:55:19 testoster one, free + total, serum 2021 022 [facility] [employer] [facility], [place], [address], 08/25/2021 16:55:19 TSH + free T4, serum 2021 022 [facility] [employer] [facility], [place], [address], 08/25/2021 16:55:20 vitamin D, 25-hydrox y, total, serum 2021 022 [facility], [address] [place] [address], [place], [address], 08/25/2021 17:00:47 Referral dermatolo gist referral 2021 022 [facility], [address], [place], [address], 09/22/2021 08:29:24 sleep medicine referral 2021 022 [email or web address] 10 [facility], [address] [address], [place], [address], 08/28/2021 08:28:12 Procedures None recorded. Surgeries None recorded. Imaging XR, lumbosacr al spine, 2 or 3 view 2023 024 [email or web address] [facility], [address] [place] [address], [place], [address], 09/19/2023 11:15:38 XR, hand, 3 or more view 2021 022 [email or web address] 10 [facility], [address] [place], [address], 09/08/2021 08:38:10 Medication Orders Mounjaro 2.5 mg/0.5 mL subcutane ous pen injector 2024 025 [facility], [address], [place], [id number], 05/11/2024 16:43:46 Rybelsus 14 mg tablet 2024 025 [facility], [address] [place], [place], [id number], 05/11/2024 16:42:21 dextroamp hetamine- amphetami ne ER 20 mg 24hr capsule,e xtend release 2024 025 [facility], [address], [place], [id number], 04/13/2024 15:56:55 tramadol 50 mg tablet 2023 024 [facility], [address], [place], [id number], 04/13/2024 15:47:07 prednison e 10 mg tablet 2023 024 [facility], [address], [place], [id number], 04/13/2024 15:46:58 Jardiance 25 mg tablet 2022 023 [facility], [address] [place], [address], 05/11/2024 16:42:12 dextroamp hetamine- amphetami ne 10 mg tablet 2022 023 [facility], [address] [place], [address], 02/11/2023 15:10:35 metformin ER 500 mg tablet,ex tended release 24 hr 2021 022 [facility], [address] [place], [address], 12/27/2022 11:47:44 Patient TargetsNo targets recorded. Patient InstructionsNo instructions recorded. 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 [facility] [address] [place], [address], 02/01/2022 14:10:30 10/11/19 24 09/16/2023 XR, lumbo sacra l spine , 2 or 3 view No observ ation record ed. [facility] (Medical Records) [address] [place], [address], 10/11/2023 15:46:35 Result Notes None recorded. Problems Name Problem SNOMED Code Status Onset Date Resolution Date Notes Provider Name and Address Organization Details Recorded Time Gastroeso phageal reflux disease 894365939 Active 2017 Dianelys preston [facility] 8 08:14:26 Type 2 diabetes mellitus 72145251 Active 2017 Dianelys preston [facility] 8 08:14:43 Primary hyperchol esterolem ia 939592793 Active 2017 Jacque Pretty NP, [address] [place] [address], [address], [facility] 8 16:38:47 Pain of left hand 128659527117 103 Active 2021 LAMAR ROBERTSON [address] [place] [address], [address], [facility] 2 16:41:26 Fatigue 91167575 Active 2021 LAMAR ROBERTSON [address] [place] [address], [address], [facility] 2 16:49:17 Multiple benign melanocyt ic nevi 867416020 Active 2021 LAMAR ROBERTSON [address] [place], [address], [facility] 2 17:07:56 COVID-19 131550262 Active 2021 LAMAR ROBERTSON [address] [place], [address], [facility] 2 16:23:41 Adult attention deficit hyperacti vity disorder 405215079 Active 2022 LAMAR ROBERTSON [address] [place] [address], [address], [facility] 3 11:54:41 Low back pain 694895682 Active 2023 LAMAR ROBERTSON [address] [place] [address], [address], [facility] 4 14:41:19 Pain in lumbar spine 743448289 Active 2023 LAMAR ROBERTSON [address] [place] [address], [address], [facility] 4 11:55:14 Lumbago with sciatica 907997416 Active 2023 LAMAR ROBERTSON [address] [place], [address], [facility] 4 11:56:53 Lumbago with sciatica 569419196 Active 2023 LAMAR ROBERTSON [address] [place] [address], [address], [facility] 4 15:47:18 Neuropath y 687929134 Active 2024 LAMAR ROBERTSON [address] [place], [address], [facility] 5 16:04:17 Diabetic periphera l neuropath y 770271405 Active 2024 LAMAR ROBERTSON [address] [facility], [place], [address], [facility] 16:04:42 Problem Notes None recorded. Procedures Surgical History Date Name Laterality Status Provider Name and Address Organization Details Recorded Time Eye Surgery completed Jacque Carl i, COLLAR STITCHER, S [address] [place], [address], [facility] 12/19/2017 15:45:51 Imaging Results Imaging Date Name Status LastModified by Organiz ation Details LastModified Time 01/27/2022 sleep study, diagnostic (PROC) completed [facility] [address] [place], [address], 02/01/2022 14:10:30 09/16/2023 XR, lumbosacral spine, 2 or 3 view completed [facility] (Medical Records) [address] [place], [address], 10/11/2023 15:46:35 Procedure Notes None recorded. Medical Equipment None Reported. Allergies No known drug allergies Medications Name Sig Start Date Stop Date Status Note LastModified by Organization Details LastModified Time cyclobenzap rine 10 mg tablet TAKE ONE TABLET BY MOUTH THREE TIMES A DAY NEEDED FOR 14 DAYS 04/13 completed Not Available Not Available Not Available prednisone 10 mg tablet TAKE 6 TABLETS BY MOUTH DAILY FOR 2 DAYS, THEN 5 TABLETS FOR 2 DAYS,THEN 4 TABLETS FOR 2 DAYS,THEN 3 TABLETS FOR 2 DAYS,THEN 2 TABLETS FOR 2 04/13 completed Not Available Not Available Not Available doxycycline hyclate 100 mg capsule Take [...] EVERY 6 HOURS NEEDED FOR 7 DAYS 04/13 completed Not Available Not Available Not Available amoxicillin 875 mg tablet TAKE 1 [...] ER 20 mg 24hr capsule,ext end release TAKE ONE CAPSULE BY MOUTH EVERY DAY active Not Available Not Available No t Available dextroamphe tamine-amph etamine 20 mg tablet Take 1 tablet every day by oral route for 30 days. 11/24 completed Not Available Not Available Not Available omeprazole 20 mg capsule,del ayed release TAKE 1 CAPSULE BY MOUTH EVERY DAY 30 MINUTES BEFORE MORNING MEAL FOR 30 DAYS 2021 active Not Available Not Available Not Avai lable ibuprofen 600 mg tablet 04/13 completed Not Available Not Available Not Available methylpredn [...] day by oral route for 90 days. 05/11 completed Not Available Not Available Not Available Rybelsus 14 mg tablet Take 1 tablet every day by oral route for 30 days. 05/11 completed Not Available Not Available Not Available Rybelsus 7 mg tablet TAKE ONE TABLET BY MOUTH EVERY DAY DIRECTED 04/13 completed Not Available Not Available Not Available Mounjaro 2.5 mg/0.5 mL subcutaneou s pen injector INJECT 2.5MG UNDER THE SKIN ONCE A WEEK active Not Available Not Available No t Available Vitals Date Recorded Body height Body mass index (BMI) Body weight Oxygen saturation Oxygen saturation in Arterial blood by Pulse oximetry Heart rate Systolic blood pressure Diastolic blood pressure Provider Name and Address Organization Details Last Updated DateTime 2 182.25 cm 32 kg/m2 738199. 69 g 97 % 97 % 94 /min 122 mm[Hg] 78 mm[Hg] [facility] 2 16:32:33 Date Recorded Body height Body mass index (BMI) Body weight Heart rate Oxygen saturation Oxygen saturation in Arterial blood by Pulse oximetry Systolic blood pressure Diastolic blood pressure Provider Name and Address Organization Details Last Updated DateTime 3 180.34 cm 33.9 kg/m2 301379. 95 g 67 /min 96 % 96 % 122 mm[Hg] 80 mm[Hg] Rochelle Hinds [facility] 3 11:28:10 Date Recorded Body height Body mass index (BMI) Body weight Heart rate Oxygen saturation Oxygen saturation in Arterial blood by Pulse oximetry Systolic blood pressure Diastolic blood pressure Provider Name and Address Organization Details Last Updated DateTime 5 180.34 cm 30.9 kg/m2 664293. 79 g 107 /min 95 % 95 % 120 mm[Hg] 80 mm[Hg] Pamela Muñoz [facility] 5 15:44:59 Date Recorded Body height Body mass index (BMI) Body weight Heart rate Oxygen saturation Oxygen saturation in Arterial blood by Pulse oximetry Systolic blood pressure Diastolic blood pressure Provider Name and Address Organization Details Last Updated DateTime 5 180.34 cm 30.8 kg/m2 004633. 91 g 119 /min 98 % 98 % 120 mm[Hg] 80 mm[Hg] Rochelle Hinds [facility] 5 16:17:47 Social History Question Answer Notes LastModified by Organizat ion Details LastModified Time Tobacco Smoking Status Former Smoker 20 years Not Available [facility] 12/18/2019 03:36:24 What Was The Date Of Your Most Recent Tobacco Screening? 04/13/2024 [email or web address] Information not available 04/13/2024 Do You Or Have You Ever Used Any Other Forms Of Tobacco Or Nicotine? No [email or web address] Information not available 12/27/2022 Sex: Unknown Functional Status None recorded. Mental Status None recorded. Family History Relationship Description Onset Age of this Age Resolved Age Notes LastModified by Organization Details LastModified Time Father Diabetes mellitus [email or web address] Not available 2017 15:45:22 Mother Diabetes mellitus [email or web address] Not available 2017 15:45:22 Medical History No medical history recorded. Past Encounters Encounter ID Performer Location Encounter Start Date Encounter Closed Date Diagnosis/Indication Diagnosis SNOMED-CT Code Diagnosis ICD10 Code Diagnosis Note [id number] Martínez Menon DO [facility] [address] [facility] [address] 12/19/2017 15:31:59 12/20/2017 08:20:28 Adult health examination 315258802 Z00.01 Foot pain 30266816 M79.6 70 Type 2 rajesh betes mellitus 34790345 E11.9 Gastroesop hageal reflux disease 295314883 K21.9 follow Primary hypercholesterolemia 133905886 E78.00 will recheck Feb- see if dietary/ex ercise patterns improve profile [id number] Martínez Menon [facility] [address] [facility] [address] 03/10/2018 15:51:02 03/10/2018 16:45:42 Primary hypercholesterolemia 406866096 E78.00 will recheck Type 2 rajesh betes mellitus 78524558 E11.9 [id number] Martínez Menon [facility] [address] [facility] [address] 06/09/2018 16:02:24 06/12/2018 08:18:02 Fatigue 50485426 R53.83 Primary hypercholesterolemia 668935533 E78.00 follow Type 2 rajesh betes mellitus 26796819 E11.9 improving A1C Screening procedure 2012 5006 Z13.9 Gastroesop hageal reflux disease 040096599 K21.9 follow [id number] Martínez Menon [facility] [address] [facility] [address] 09/08/2018 15:41:02 09/08/2018 16:35:53 Type 2 diabetes mellitus 02508619 E11.9 a1c is no w down to 8 from a high of 10.5 rechk in 3 months [id number] Martínez Menon [facility] [address] [facility] [address] 02/27/2020 09:19:58 02/27/2020 15:06:22 Type 2 diabetes mellitus 61980698 E11.9 A1c is 9.4% patient will start taking metformin 500 mg TID PRESCRIBED as patient was forgetting to take his medication due to move and eating poorly due to move patient will have A1c rechecked in 3 months and will assess if next steps are needed at this time Gastroesop hageal reflux disease 028583027 K21.9 diet controlled per patient avoiding the foods that trigger him no interventi on needed at this time Paresthesi a of upper limb 49529820 R20.2 bilateral arms, happened after using power [...] diabetic control will fu if it worsens [id number] Martínez Menon [facility] [address] [facility],[place] [address] 11/19/2020 14:36:14 11/19/2020 15:14:41 Hallucinations 5268921 R44.1 will fu with testingmos t likely related to poor oxygen and sleep deprivatio n Sleep deprivation 212122 002 Z72.820 hallucinat ions and sleeping walking after COVID and lack of sleep Impaired f asting glycemia 738566680 R73.01 will recheck A1c Dyspnea 955920332 R06.02 fu with XRis de-sating in the office from 98% to 93% on RA with walking in the hallway Sleep walk ing disorder 12033716 F51.3 will fu with sleep medicine Rib pain 132836650 R07.8 1 will fu r/o rib fx Anterior knee pain 72801 3006 M25.562 will fu with XR knee [id number] Martínez Menon [facility] [address] [facility], [place] [address] 08/25/2021 16:18:22 08/26/2021 13:42:39 Type 2 diabetes mellitus 83118849 E11.9 will fu with recheck Primary hypercholesterolemia 375013012 E78.01 will recheck his labs Gastroesop hageal reflux disease 838847097 K21.9 diet controlled per patient avoiding the foods that trigger him no interventi on needed at this time Pain of left hand 347425 8784 78760 M79.642 will fu with XR hand Fatigue 05415567 R53.83 will fu with blood work Multiple b enign melanocytic nevi 283166522 D22.5 will fu with dermatolog y [id number] Martínez Menon [facility] [address] [facility] [place] [address] 12/27/2022 11:21:46 12/27/2022 13:37:56 Type 2 diabetes mellitus 11174895 E11.9 will f/u with recheck in 3 mosstop metformin, makes him to illalso clearly ineffectiv e Adult atte ntion deficit hyperactivity disorder 318388709 F90.0 will start on adderral for better focus [id number] Martínez Menon [facility] [address] [facility] [place] [address] 09/16/2023 10:01:59 09/19/2023 11:15:38 Type 2 diabetes mellitus 36958213 E11.9 will set up with [facility] Pain in lumbar spine 267 476580 M54.51 needs XR, then MRIwill send [facility] Lumbago with sciatica 20 5728329 M54.42 will start on prednisone [id number] Martínez Menon [facility] [address] [facility] [place] [address] 04/13/2024 15:32:52 04/13/2024 16:31:05 Renewal of prescription 248511022 Z76.0 stable Type 2 rajesh betes mellitus 73581139 E11.9 incredibly high levels Adult atte ntion deficit hyperactivity disorder 520166981 F90.0 needs refill of medication Diabetic p eripheral neuropathy 828879267 E11.41 mild [id number] Martínez Menon [facility] [address] [facility] [place] [address] 05/11/2024 16:09:08 05/14/2024 10:31:51 Type 2 diabetes mellitus 28699579 E11.9 incredibly high levels Health Concerns Section Related Observation LastModified by Organization Detai ls LastModified Time None Recorded Concern Status LastModified by Organization Details LastModified Time None Recorded Advance Directives Directive None Recorded Payers Encounter Date Sequence Insurance Name Policy Number Policy Juarez Covered Member ID Juarez Member ID Guarantor Name 08/25/2021 1 [place] [id number] aMrtínez Werner [id number] Martínez Werner 12/27/[address] [facility] [id number] Martínez Werner [id number] Martínez Werner 09/16/[address] 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 LAMAR ROBERTSON [address] [place] [address], [place], [address], [facility] 08/25/2021 17:17:17 3 text/html f/u [...] completing tasks on hand LAMAR ROBERTSON [address] [place], [address], [facility] 12/27/2022 12:19:17 4 text/html c/o lumbar spine pain The patient is participating in this appointment via telemedicine communication with a phone call/video calling service ([employer])The patient consents to use of these platforms [...] for lab work, patient aware LAMAR ROBERTSON [address] [place], [address], [facility] 09/16/2023 12:17:14 5 text/html medication check type 2 diabetes: very elevated sugar and A1c, recommending going up on the rybelsuscontinue on the jardiance as well neuropathy: developing recently, very mild, needs to get sugar under control the patient agrees to make lifestyle changes and the increase of rybelsus will set up with patient for recheck, f/u in a month LAMAR ROBERTSON [address] [place], [address], [facility] 04/13/2024 16:05:59 5 text/html f/u 1 mo f/u HTN: today in the office the patient BP is 120/80 L arm sitting the patient is doing well on the BP medication with no side effects and no adjustment of their medications needed today at the appointment well-controlled on medication denies chest pain, sob, ankle swelling, orthopnea, palpitations T2DM: his glucose is better, down from 374 to 271 but his a1c is up from 11.3 to 11.8 (only a month between, probably calculating up the month his sugar was really bad) the patient will start on mounjaro instead of the ryeblesus LAMAR ROBERTSON [address] [place], [address], [facility] 05/11/2024 16:51:20
--- OUTSIDE RECORDS SUMMARY | 2024-06-14 16:53 | XMS_ITS | Clinical Summary ---
Author Organization [facility] Address [address] [place] [address] Phone Care Team Providers Care Pilot Plant Research Technician Name Role Phone Krunal Kalpesh Efrain Primary Care Provider [phone] Immunizations Immunization Administration Dates Next Due DTP [...] age to complete this topic Care Teams Pilot Plant Research Technician Relationship Specialty Start Date End Date Kalpesh Hector [address] [place] [address] PCP - General 09/24/16
--- OUTSIDE RECORDS SUMMARY | 2024-06-14 16:53 | XMS_ITS | Encounter Summary ---
Author Organization [facility] Address [address] [place] [address] Phone Care Team Providers Care Animal Caretaker Supervisor Name Role Phone Kalpesh Hector Primary Care Provider [phone] Encounter Details Date Type Department Care Team (Late st Contact Info) Description 09/30/2016 Conversion Encounter [facility] [address] [place] [address] Social History Tobacco Use Types Packs/Day Years [...] on filedocumented in this encounter Care Teams Animal Caretaker Supervisor Relationship Specialty Start Date End Date Kalpesh Hector [address] [place] [address] PCP - General 09/24/16 documented as of this encounter
[2024-06-14 17:21] LABS: Estimated Average Glucose 266 mg/dL; Hemoglobin A1C 390.0486 umol/L; Hemoglobin A1c % 10.9 % (<6.0); Total Hemoglobin (HGBA1C) 4085.8229 umol/L
[2024-06-14 17:54] LABS: Albumin Level 4.4 g/dL (3.5-5.0); Alkaline Phosphatase 125 U/L (39-117); Anion Gap 12 (12-20); Aspartate Amino Transferase 29 U/L (5-37); Bilirubin Total 0.3 mg/dL (0.0-1.0); Blood Urea Nitrogen 13 mg/dL (9-16); Calcium 10.2 mg/dL (8.4-10.2); Carbon Dioxide 30 mmol/L (22-29); Chloride 98 mmol/L (96-108); Cholesterol 177 mg/dL (<200); Estimated Glomerular Filt Rate > 60; HDL Cholesterol 52 mg/dL (>40); LDL Cholesterol Calculated 76 mg/dL (<100); Potassium 4.4 mmol/L (3.3-5.1); Sodium 136 mmol/L (135-145); Total Protein 7.8 g/dL (6.5-8.0); Triglycerides 248 mg/dL (<150)
[2024-06-14 18:02] LABS: Alanine Aminotransferase 38 U/L (0-40); Glucose Random 352 mg/dL (60-115)
== END 2024-06-14 14:54 | disposition home or self-care (01) ==
LOC: HO.LABR 14:53
PROVIDERS: PCP Physician Assistant; Visit Provider Physician Assistant
DX: E11.9 Type 2 diabetes mellitus without complications (principal)
CPT/HCPCS: 36415; 80053; 80061; 83036